=== PATIENT | female | born 1975 | race Caucasian/White ===

== ENCOUNTER 2023-12-02 06:22 | Day surgery (SDC) | payer OTHER, SELFPAY ==
[2023-12-02 06:15] VITALS: BMI 27.3
[2023-12-02 06:20] VITALS: BP 112/63
[2023-12-02 06:40] VITALS: BMI 27.3
[2023-12-02] MEDS: NORMOSOL-R 1000 IV (06:46)
[2023-12-02] MEDS: Pyridium 200 MG PO (06:46)
[2023-12-02 08:04] VITALS: BP 95/48
[2023-12-02 08:15] VITALS: BP 88/61
[2023-12-02 08:30] VITALS: BP 99/66
[2023-12-02 08:45] VITALS: BP 97/67
== END 2023-12-02 09:04 | disposition home or self-care (01) ==
LOC: SDS 06:22
PROVIDERS: ATTENDING PHYSICIAN Obstetrics & Gynecology
DX: N39.3 Stress incontinence (female) (male) (principal); N36.42 Intrinsic sphincter deficiency (ISD)
CPT/HCPCS: 51715

== ENCOUNTER → 2024-05-18 15:54 | Outpatient (REF) | payer OTHER, SELFPAY | LOC: WDC 15:54 | PROVIDERS: ATTENDING PHYSICIAN Physician Assistant Medical | DX: Z12.31 Encounter for screening mammogram for malignant neoplasm of breast (principal) | CPT/HCPCS: 77063; 77067 ==

== ENCOUNTER 2024-12-20 06:13 | Day surgery (SDC) | payer OTHER, SELFPAY ==
[2024-12-20] VITALS (13 sets, daily range): BP systolic 88–112; BP diastolic 44–65; BMI 28.1
[2024-12-20] MEDS: NORMOSOL-R/PLASMALYTE-A 1000 IV (06:30)
[2024-12-20] MEDS: Pyridium 200 MG PO (06:30)
--- NOTE | 2024-12-20 08:44 | SUR.PHASEI ---
very sleepy but arousable, vss, no pain or nausea.
== END 2024-12-20 10:40 | disposition home or self-care (01) ==
LOC: SDS 06:13
PROVIDERS: ATTENDING PHYSICIAN Obstetrics & Gynecology
DX: N39.3 Stress incontinence (female) (male) (principal); N36.42 Intrinsic sphincter deficiency (ISD)
CPT/HCPCS: 51715; L8606